=== PATIENT | male | born 1990 | race American Indian/Alaskan Native ===

== ENCOUNTER 2017-08-04 21:11 | Emergency (ER) | payer SELFPAY ==
[2017-08-04] MEDS ORDERED: NACL 0.9% 1000 ML 1,000 ML IV ONE (22:17)
[2017-08-04 23:21] LABS: Hematocrit 39.1 % (35.5-45.6); Hemoglobin 13.2 gm/dl (11.8-15.2); Mean Corpuscular HGB Conc 34 % (32-34); Mean Corpuscular Hemoglobin 30 pg (28-32); Mean Corpuscular Volume 88 fl (84-94); Platelet Count 123 K/mm3 (140-440); Red Blood Count 4.46 M/mm3 (3.65-5.03); Red Cell Distribution Width 12.5 % (13.2-15.2)
[2017-08-04 23:30] LABS: INR 1.13 (0.87-1.13)
[2017-08-04 23:31] LABS: Partial Thromboplastin Time 34.6 Sec. (24.2-36.6)
[2017-08-04 23:41] LABS: Alanine Aminotransferase 12 units/L (7-56); Albumin 4.3 g/dL (3.9-5); BUN/Creatinine Ratio 14; Blood Urea Nitrogen 10 mg/dL (9-20); Calcium 9.2 mg/dL (8.4-10.2); Hemolysis Index 1; Lipase 8 units/L (13-60)
[2017-08-05] MEDS ORDERED: K-DUR PO ONE ×2 (00:37→05:23)
[2017-08-05] MEDS: KCL 10MEQ/100ML 10 MEQ/100 ML BAG IV SCH ×2 (00:45→02:07)
--- NOTE | 2017-08-05 00:55 | Emergency Department Report ---
HPI - General Chief Complaint: GI Bleed Time Seen by Provider: 08/05/17 00:27 - HPI HPI: 27-year-old male presents to the emergency department with a complaint of a four-day history of thrush in the mouth, generalized abdominal pain, and copious diarrhea that has started to produce some blood when he has bowel movements. He denies any recent travel or sick contacts at home. He denies any suspicion of recently undercooked foods. He denies any past medical history. He does not have a primary care physician. He just moved up here from [place] 3 months ago. He has not taken anything for his symptoms prior to presentation. ED Past Medical Hx - Past Medical History Previous Medical History?: No - Surgical History Past Surgical History?: No - Social History Smoking Status: Never Smoker Substance Use Type: Marijuana - Medications Home Medications: Home Medications Medication Instructions Recorded Confirmed Last Taken Type Nystatin [Nystatin SUSP] 5 ml PO QID #200 ml 08/05/17 Unknown Rx Omeprazole Magnesium [PriLOSEC Otc] 20 mg PO BID #20 tab 08/05/17 Unknown Rx ED Review of Systems ROS: Stated complaint: ABD PAIN Other details as noted in HPI Comment: All other systems reviewed and negative Constitutional: denies: chills, fever Eyes: denies: eye pain, eye discharge, vision change ENT: other (thrush). denies: ear pain Respiratory: denies: cough, shortness of breath, wheezing Cardiovascular: denies: chest pain, palpitations Gastrointestinal: abdominal pain, diarrhea. denies: nausea, vomiting Genitourinary: denies: urgency, dysuria Musculoskeletal: denies: back pain, joint swelling, arthralgia Skin: denies: rash, lesions Neurological: denies: headache, weakness, paresthesias Physical Exam - Physical Exam Vital Signs: Vital Signs 08/04/17 22:13 Temperature 98.7 F Pulse Rate 100 H Respiratory 18 Rate Blood Pressure 129/64 O2 Sat by Pulse 98 Oximetry Physical Exam: GENERAL: The patient is well-developed well-nourished. HENT: Normocephalic. Atraumatic. Patient has moist mucous membranes. Patient has oral thrush to the tongue and the soft and hard palate. No drooling or trismus. EYES: Extraocular motions are intact. Pupils equal reactive to light bilaterally. NECK: Supple. Trachea is midline. CHEST/LUNGS: Clear to auscultation. There is no respiratory distress noted. HEART/CARDIOVASCULAR: Regular. There is no tachycardia. There is no murmur. ABDOMEN: Abdomen is soft, nontender. Patient has hyperactive bowel sounds. There is no abdominal distention. SKIN: There is no rash. There is no edema. There is no diaphoresis. NEURO: The patient is awake, alert, and oriented. The patient is cooperative. The patient has no focal neurologic deficits. The patient has normal speech and gait. MUSCULOSKELETAL: There is no tenderness or deformity. There is no limitation range of motion. There is no evidence of acute injury. RECTAL: There is no gross blood. Stool is positive on guaiac testing. There are no visible hemorrhoids but the patient has a few small growths and/or lesions to the perirectal region. ED Course Vital Signs 08/04/17 22:13 Temperature 98.7 F Pulse Rate 100 H Respiratory 18 Rate Blood Pressure 129/64 O2 Sat by Pulse 98 Oximetry ED Medical Decision Making - Lab Data Result diagrams: 08/04/17 22:59 08/05/17 04:31 - Radiology Data Radiology results: report reviewed PROCEDURE: CT ABDOMEN PELVIS W CON TECHNIQUE: Computerized axial tomography of the abdomen and pelvis was performed after the IV injection of iodinated nonionic contrast. HISTORY: abd pain COMPARISON: No prior studies are available for comparison. FINDINGS: Visualized lower thorax: No significant abnormality. Liver: Normal size and attenuation. Spleen: Normal size and attenuation. Gallbladder and biliary system: Normal. Pancreas: Normal. Adrenals: Normal. Kidneys: Both kidneys have a normal size. No hydronephrosis.. GI tract: The stomach is normal. The small bowel has a normal caliber. No obstruction is seen. Valuation of the bowel is limited without oral contrast. The appendix is not visualized. Colon has a normal appearance.. Lymph nodes and mesentery: Normal. Vasculature: Normal. Bladder: Normal. Reproductive organs: Normal. Peritoneum: No free fluid. Musculoskeletal structures: No significant abnormality. Other: None. IMPRESSION: There is no evidence of intestinal or urinary tract obstruction. No ileus or enteritis. Transcribed By: [facility] Dictated By: MISHA DOBSON MD Electronically Authenticated By: MISHA DOBSON MD Signed Date/Time: 08/05/17 0121 - Medical Decision Making Patient presents with some abdominal discomfort, diarrhea, rectal bleeding. His hemoglobin appears stable at 13. There is no leukocytosis. He does have some mild thrombocytopenia but at 120,000 is most likely not the etiology of the bleeding. He was also found to have some hyperkalemia with potassium of 2.8. He was given both by mouth and IV potassium chloride supplementation. CT of the abdomen and pelvis with IV contrast does not show any evidence of any intestinal or urinary tract obstruction or infection, ileus or enteritis and was a normal examination. After the patient received the potassium chloride, the metabolic panel was rechecked and it had gone up to 3.1. He was given another small 20 mEq dose of potassium chloride. Patient does have a small amount of blood seen on guaiac testing but no gross blood. Vital signs stable throughout his ED course. He appears safe for discharge home at this time. He has been given a referral for gastroenterology to follow up regarding the rectal bleeding and he understands he may need a colonoscopy in the near future. He also understands to return to the emergency department if there is any worsening of symptoms or any acute distress. He has been given a referral for the local health department in case he would like to get any testing done for HIV or any other STD testing. He has been also given multiple referrals for primary care physicians. He was sent home with a prescription for nystatin for his thrush and some Prilosec for the GI tract. - Differential Diagnosis thrush, HIV, food poisoning, gastroenteritis, ileus Critical Care Time: No Critical care attestation.: If time is entered above; I have spent that time in minutes in the direct care of this critically ill patient, excluding procedure time. ED Disposition Clinical Impression: Oral thrush, Rectal bleeding, Hypokalemia Diarrhea Qualifiers: Diarrhea type: unspecified type Qualified Code(s): R19.7 - Diarrhea, unspecified Disposition: DC-01 TO HOME OR SELFCARE Is pt being admited?: No Condition: Stable Instructions: Rectal Bleeding (ED), Oral Candidiasis (ED), Hypokalemia (ED) Additional Instructions: Please follow up with a primary care physician in the next few days. I have given a referral for a local restaurant team member, Dr. Garcia, to follow up regarding the rectal bleeding. I've given him a referral for the local health department and I have given some referrals for primary care physicians and/or clinics in the area. Please return to the emergency Department with any worsening of your symptoms or any acute distress. Prescriptions: Nystatin [Nystatin SUSP] 5 ml PO QID #200 ml Omeprazole Magnesium [PriLOSEC Otc] 20 mg PO BID #20 tab Referrals: PRIMARY CARE, [Primary Care Provider] - 3-5 Days KARINA GARCIA MD [Staff Physician] - 3-5 Days CHERRY DANIELS MD [Staff Physician] - 3-5 Days [facility] [Outside] - 3-5 Days [facility] [Outside] - 3-5 Days Forms: Accompanied Note Time of Disposition: 05:25
[2017-08-05 03:02] LABS: Anisocytosis 1+; Band Neutrophils # (Manual) 2.7 K/mm3; Basophils % (Manual) 0 % (0.0-1.8); Eosinophils % (Manual) 0 % (0.0-4.3); Ovalocytes Few; Platelet Estimate Consistent w Auto; Total Cells Counted 100
--- NOTE | 2017-08-05 03:06 | Cat Scan Report ---
FINAL REPORT PROCEDURE: CT ABDOMEN PELVIS W CON TECHNIQUE: Computerized axial tomography of the abdomen and pelvis was performed after the IV injection of iodinated nonionic contrast. HISTORY: abd pain COMPARISON: No prior studies are available for comparison. FINDINGS: Visualized lower thorax: No significant abnormality. Liver: Normal size and attenuation. Spleen: Normal size and attenuation. Gallbladder and biliary system: Normal. Pancreas: Normal. Adrenals: Normal. Kidneys: Both kidneys have a normal size. No hydronephrosis.. GI tract: The stomach is normal. The small bowel has a normal caliber. No obstruction is seen. Valuation of the bowel is limited without oral contrast. The appendix is not visualized. Colon has a normal appearance.. Lymph nodes and mesentery: Normal. Vasculature: Normal. Bladder: Normal. Reproductive organs: Normal. Peritoneum: No free fluid. Musculoskeletal structures: No significant abnormality. Other: None. IMPRESSION: There is no evidence of intestinal or urinary tract obstruction. No ileus or enteritis.
[2017-08-05 03:26] VITALS: BP 116/81
[2017-08-05 05:02] LABS: BUN/Creatinine Ratio 13; Blood Urea Nitrogen 9 mg/dL (9-20); Calcium 8.5 mg/dL (8.4-10.2); Hemolysis Index 59
--- NOTE | 2017-08-08 11:47 | Emergency Department Report ---
Blank Doc - Documentation Documentation: The patient's stool was tested from his previous visit on 08/04/17 and the stool culture came back positive for Shigella. I called and spoke with Mr. mondragon and let him know of the results and the plan for starting him on some antibiotics. He has stated that he will come to the emergency department to tow picker the prescription for the antibiotics.
== END 2017-08-05 06:22 | disposition home or self-care (01) ==
LOC: ED 21:11
DX: E87.6 Hypokalemia (principal); B37.0 Candidal stomatitis; K62.5 Hemorrhage of anus and rectum; R10.84 Generalized abdominal pain; R19.7 Diarrhea, unspecified; F12.10 Cannabis abuse, uncomplicated
CPT/HCPCS: 36415; 74177; 80048; 80053; 82270; 83690; 85007; 85025; 85610; 85730; 86850; 86900; 86901; 87045; 93005; 93010; 96361; 96365; 99284; J3480; J7030; Q9967